=== PATIENT | male | born 1985 | race Caucasian/White ===

== ENCOUNTER 2017-03-02 11:20 | Emergency (ER) | payer OTHER ==
[~2017-03-02] VITALS: Ht 167.6 cm; Wt 66.0 kg
[~2017-03-02 11:20] MED LIST: CYCL5TAB PO; NAPR-260 PO
[2017-03-02 11:28] VITALS: Ht 167.6 cm; Wt 66.0 kg
--- NOTE | 2017-03-02 11:56 | ERD ---
ER Documentation Chief Complaint Date/Time DATE: 03/02/17 TIME: 11:55 Chief Complaint right sided chest wall pain since yesterday HPI 31-year-old male otherwise healthy comes in with right-sided chest pain that started yesterday after he tried to stand up from a sitting position. He describes it as achy, worse when he takes a deep breath in or out or moves. He denies any fevers, chills, shortness of breath. No hemoptysis. ROS All systems reviewed and are negative except as per history of present illness. Medications Home Meds Active Scripts Cyclobenzaprine Hcl* (Cyclobenzaprine Hcl*) 5 Mg Tablet, 5 MG PO Q8H Y for PAIN , #5 TAB Prov:MIS CASTANO PA-C 03/02/17 Ibuprofen* (Motrin*) 600 Mg Tab, 600 MG PO Q6, #20 TAB Prov:MIS CASTANO PA-C 03/02/17 Cyclobenzaprine Hcl* (Cyclobenzaprine Hcl*) 5 Mg Tablet, 2.5 MG PO Q8H Y for PAIN, #15 TAB Prov:MIS CASTANO PA-C 09/12/16 Naproxen* (Naprosyn*) 500 Mg Tablet, 500 MG PO BID Y for PAIN AND/OR INFLAMMATION, #30 TAB Prov:MIS CASTANO PA-C 09/12/16 Allergies Allergies: Coded Allergies: No Known Allergy (Unverified , 12/08/14) PMhx/Soc History of Surgery: No Anesthesia Reaction: No Hx Neurological Disorder: No Hx Respiratory Disorders: No Hx Cardiac Disorders: No Hx Psychiatric Problems: No Hx Miscellaneous Medical Probl: No Hx Alcohol Use: No Hx Substance Use: No Hx Tobacco Use: No Smoking Status: Never smoker Physical Exam Vitals Vital Signs Date Time Temp Pulse Resp B/P Pulse Ox O2 Delivery O2 Flow Rate FiO2 03/02/17 11:28 98.6 91 18 109/63 100 Physical Exam General: Well-developed, well-nourished. The patient appears in no acute distress. HEENT: Head is normocephalic, atraumatic. No scleral icterus. Neck: Supple. Nontender. Lungs: Clear to auscultation. Normal air movement. Nonlabored. Reproducible pain with inspiration and expiration as well as chest movement. There is no chest wall tenderness. Heart: Regular rate and rhythm. S1 and S2 are normal. No murmurs, gallops, or rubs. Abdomen: Soft, nontender, nondistended. Bowel sounds are normoactive. Extremities: No clubbing or cyanosis. Normal pulses. Moving extremities x 4. No weakness. Neurologic: Alert and oriented 3. No focal deficits. Skin: Normal turgor. No rash or lesions. Results 24 hrs Current Medications Medications (Trade) Dose Ordered Sig/Shama Route PRN Reason Start Time Stop Time Status Last Admin Dose Admin Ibuprofen (Motrin) 600 mg ONCE ONCE PO 03/02/17 12:00 03/02/17 12:01 DC 03/02/17 11:47 Procedures/MDM ED course: 12-lead EKG(interpreted by supervising physician): Dr Beasley Rate/Rhythm: Normal Sinus Rhythm, Rate of 88 QRS, ST, T-waves: No changes consistent w/ acute ischemia, no intervals, no dysrhythmias, no ectopy Impression: No evidence of ischemia or arrhythmia MDM: 31 yo male comes in with right sided chest pain, likely chest wall strain for he was standing up. Chest x-ray was performed, that was normal. There is no evidence of hemopneumothorax, pneumothorax, infiltrate. Patient's examination is benign at this time, I doubt any cardiac origin. Differential is also considered include pulmonary embolus however he does not have any shortness of breath and is PERC score negative. Departure Diagnosis: Primary Impression: Chest pain Condition: MIS Burtno PA-C March 02, 2017 11:56
[2017-03-02] MEDS ORDERED: IBUPROFEN 600 MG TAB PO ONE (12:00)
--- NOTE | 2017-03-02 13:01 | RADRPT ---
PROCEDURE: XR Chest. CLINICAL INDICATION: chest pain TECHNIQUE: Single frontal view of the chest was obtained COMPARISON: None FINDINGS: The heart and mediastinum are within normal limits. The lungs are clear. There is mild tenting of the left diaphragm. There is no pleural effusion or pneumothorax. RPTAT: AA IMPRESSION: No acute disease. .Hans Trujilol MD, MD Date Time Electronically viewed and signed by .Hans Trujillo MD, on 03/02/2017 13:01 .S/
[2017-03-02] MEDS ORDERED: CYCL5TAB PO (13:13)
[2017-03-02] MEDS ORDERED: IBUP-1542 PO (13:13)
== END 2017-03-02 13:52 | disposition home or self-care (01) ==
LOC: FTE 11:20
DX: R07.89 Other chest pain (principal)
CPT/HCPCS: 71010; 93005; Z7502; Z7610

== ENCOUNTER 2018-07-20 02:25 | Emergency (ER) | END 2018-07-20 05:49 | disposition home or self-care (01) ==

== ENCOUNTER 2018-07-20 19:15 | Emergency (ER) | END 2018-07-20 22:46 | disposition home or self-care (01) ==